=== PATIENT | female | born 1945 | race Caucasian/White ===

== ENCOUNTER 2024-12-14 10:09 | Outpatient (AMB) | payer OTHER, SELFPAY ==
--- NOTE | 2024-12-14 10:15 | MHC.OFFVIS ---
Intake Visit Reasons: 3m SZ Accompanied by: Daughter Allergies No Known Allergies Allergy (Verified 12/14/24 10:37) Medication List - Last Reconciled 12/14/24 by rTi Andersen CNP amlodipine 10 mg PO DAILY apixaban (Eliquis) 2.5 mg PO BID atorvastatin (Lipitor) 10 mg PO DAILY labetalol 200 mg PO BID levetiracetam 1,000 mg PO Q12H losartan 25 mg PO DAILY HPI Comments Details: 79-year-old woman with obesity, HTN, left basal ganglia area hemorrhage in 1992 and subsequent seizure disorder (chewing movements and zoning out for about a minutes). Seizures were controlled on the meds she was taking. She has no h/o generalized seizures or admission in hospital with seizures or intubation. She had small seizures where she would make chewing movements with her mouth and zone out for about a minute or so on 04/18/2024, 05/14/2024, 06/17/2024, 08/05/2024, and 08/31/2024. She was taking increased dose of levetiracetam 1000mg twice a day and had few more small seizures which were similar to previous episodes on 09/13/2024, 09/29/2024, 10/12/2024, and 11/23/2024. No missed doses of medication. Her daughter had been giving her left over Dilantin when she thought seizure may be coming to try and stop it, but ran out medication. [facility] Medical History (Updated 12/14/24 @ 10:27 by Tri Andersen CNP) History of stroke HLD (hyperlipidemia) HTN (hypertension) Review of Systems Const Denies chills, Denies daytime sleepiness, Denies difficulty sleeping, Denies fatigue, Denies fever(s), Denies frequent falls, Denies headache(s), Denies increased appetite, Denies poor appetite, Denies snoring, Denies weakness, Denies weight gain and Denies weight loss Eyes Denies loss of vision ENT Denies vertigo, Denies dizziness and Denies headache(s) Card Denies chest pain at rest, Denies chest pain with activity, Denies syncope, Denies leg edema and Denies palpitations Resp Denies snoring GI Denies constipation, Denies heartburn, Denies diarrhea and Denies nausea Denies urinary frequency, Denies urinary incontinence and Denies urinary urgency Musc Denies abnormal gait, Denies numbness and Denies tingling Skin/Breast Denies dry skin and Denies rash Neuro Denies abnormal gait, Denies vertigo, Denies dizziness, Denies syncope, Denies frequent falls, Denies headache(s), Denies lack of coordination, Denies loss of vision, Denies memory loss, Denies numbness, Denies restless legs, Denies seizure-like activity, Denies tingling, Denies paresthesias, Denies tremor(s) and Denies weakness Psych Denies anxiety, Denies depression, Denies auditory hallucinations, Denies memory loss, Denies visual hallucinations and Denies suicidal ideation Endo Denies fatigue and Denies palpitations Physical Exam Const Other: General Appearance:? normal, in no acute distress. Skin:? no rashes, no significant birthmarks. Heart:? S1, S2 normal, no murmurs. Lungs:? clear anteriorly and posteriorly. Extremities:? no edema. Psych:? alert, oriented, cognitive function intact, cooperative with exam. Neuro Other: Mental Status:?She is alert and awake with normal spontaneity of speech fluency comprehension and affect.? She is able to name and repeat. Cranial Nerves:?Pupils are equal, round and reactive to light. External occular muscles are intact. Visual rodríguez are full. Face is symmetrical. Facial sensations are normal. Tongue is midline. Palate elevates symmetrically. Shoulder shrugging is normal. Hearing to bedside conversation is normal. Motor Examination:?R hemiparesis Sensory Exam:?....? Coordination:?No ataxia,?no titubation.? Gait Exam: In wheelchair. Cerebellar Signs:?[id number] with left hand is okay. Extrapyramidal System:?No tremor, rigidity with normal facial expressions.? Pronator Drift:?Not present.? Involuntary Movements:?No tremors seen.? Speech:?Normal.? Results Reviewed Results Reviewed: CT brain WO at [facility] in August 2023: Left basal ganglia area encephalomalacia Routine EEG at off in Feb 2024: Slow Assessment & Plan Assessment & Plan (1) Seizure disorder: Code(s): G40.909 - Epilepsy, unspecified, not intractable, without status epilepticus Category: Medical Plan: Increase levetiracetam 1000mg 1.5 tablet twice a day. (2) History of intracranial hemorrhage: Code(s): Z86.79 - Personal history of other diseases of the circulatory system Category: Medical Plan . Medications: New levetiracetam 1,500 mg (1.5 x 1,000 mg) PO BID 90 tabs 2RF 30 days Coding Level of Care Code Est Pt Level 4 (41889) Diagnoses Seizure disorder G40.909 History of intracranial hemorrhage Z86.79
== END 2024-12-14 10:43 | disposition home or self-care (01) ==
LOC: HO.HSM 10:10
PROVIDERS: PCP Internal Medicine Rheumatology; Referring Provider Internal Medicine Rheumatology; Visit Provider Registered Nurse
DX: G40.909 Epilepsy, unspecified, not intractable, without status epilepticus (principal); Z86.79 Personal history of other diseases of the circulatory system
CPT/HCPCS: 99214

== ENCOUNTER → 2024-12-14 10:09 | Outpatient (BNVA) | payer OTHER, SELFPAY | PROVIDERS: PCP Internal Medicine Rheumatology; Referring Provider Internal Medicine Rheumatology; Visit Provider Registered Nurse | DX: G40.909 Epilepsy, unspecified, not intractable, without status epilepticus (principal); Z86.79 Personal history of other diseases of the circulatory system; E66.9 Obesity, unspecified; I10 Essential (primary) hypertension | CPT/HCPCS: 99212 ==

== ENCOUNTER 2025-03-08 10:35 | Outpatient (AMB) | payer OTHER, SELFPAY ==
--- NOTE | 2025-03-08 10:40 | A.OFFVIS_ITS ---
Intake Visit Reasons: 2m sz Allergies No Known Allergies Allergy (Verified 03/08/25 10:41) Medication List - Last Reconciled 03/08/25 by Tri Andersen CNP amlodipine 10 mg PO DAILY apixaban (Eliquis) 2.5 mg PO BID atorvastatin (Lipitor) 10 mg PO DAILY labetalol 200 mg PO BID levetiracetam 1,500 mg (1.5 x 1,000 mg) PO BID 30 days losartan 25 mg PO DAILY HPI Comments Details: 79-year-old woman with obesity, HTN, left basal ganglia area hemorrhage in 1992 and subsequent seizure disorder (chewing movements and zoning out for about a minutes). Seizures were controlled on the meds she was taking. She has no h/o generalized seizures or admission in hospital with seizures or intubation. She had small seizures where she would make chewing movements with her mouth and zone out for about a minute or so on 04/18/2024, 05/14/2024, 06/17/2024, 08/05/2024, and 08/31/2024. Dose of levetiracetam was increased to 1000mg twice a day and had few more small seizures which were similar to previous episodes on 09/13/2024, 09/29/2024, 10/12/2024, and 11/23/2024. Her daughter had been giving her left over Dilantin when she thought seizure may be coming to try and stop it, but ran out medication. She was doing okay with increased dose of levetiracetam. She was taking leveti racetam 1500mg twice a day. No medication side effects. No seizures. Sleep was okay. [facility] Medical History (Updated 12/14/24 @ 10:27 by Tri Andersen CNP) History of stroke HLD (hyperlipidemia) HTN (hypertension) Review of Systems Const Denies chills, Denies daytime sleepiness, Denies difficulty sleeping, Denies fatigue, Denies fever(s), Denies frequent falls, Denies headache(s), Denies increased appetite, Denies poor appetite, Denies snoring, Denies weakness, Denies weight gain and Denies weight loss Eyes Denies loss of vision ENT Denies vertigo, Denies dizziness and Denies headache(s) Card Denies chest pain at rest, Denies chest pain with activity, Denies syncope, Denies leg edema and Denies palpitations Resp Denies snoring GI Denies constipation, Denies heartburn, Denies diarrhea and Denies nausea Denies urinary frequency, Denies urinary incontinence and Denies urinary urgency Musc Denies abnormal gait, Denies numbness and Denies tingling Skin/Breast Denies dry skin and Denies rash Neuro Denies abnormal gait, Denies vertigo, Denies dizziness, Denies syncope, Denies frequent falls, Denies headache(s), Denies lack of coordination, Denies loss of vision, Denies memory loss, Denies numbness, Denies restless legs, Denies seizure-like activity, Denies tingling, Denies paresthesias, Denies tremor(s) and Denies weakness Psych Denies anxiety, Denies depression, Denies auditory hallucinations, Denies memory loss, Denies visual hallucinations and Denies suicidal ideation Endo Denies fatigue and Denies palpitations Physical Exam Const Other: General Appearance:? normal, in no acute distress. Skin:? no rashes, no significant birthmarks. Heart:? S1, S2 normal, no murmurs. Lungs:? clear anteriorly and posteriorly. Extremities:? no edema. Psych:? alert, oriented, cognitive function intact, cooperative with exam. Neuro Other: Mental Status:?She is alert and awake with normal spontaneity of speech fluency comprehension and affect.? She is able to name and repeat. Cranial Nerves:?Pupils are equal, round and reactive to light. External occular muscles are intact. Visual rodríguez are full. Face is symmetrical. Facial sensations are normal. Tongue is midline. Palate elevates symmetrically. Shoulder shrugging is normal. Hearing to bedside conversation is normal. Motor Examination:?R hemiparesis Sensory Exam:?....? Coordination:?No ataxia,?no titubation.? Gait Exam: In wheelchair. Cerebellar Signs:?[id number] with left hand is okay. Extrapyramidal System:?No tremor, rigidity with normal facial expressions.? Pronator Drift:?Not present.? Involuntary Movements:?No tremors seen.? Speech:?Normal.? Results Reviewed Results Reviewed: CT brain WO at [facility] in August 2023: Left basal ganglia area encephalomalacia Routine EEG at [facility] in Feb 2024: Slow Assessment & Plan Assessment & Plan (1) Seizure disorder: Code(s): G40.909 - Epilepsy, unspecified, not intractable, without status epilepticus Category: Medical Plan: Continue levetiracetam 1000mg 1.5 tablet twice a day. Follow up in 6 months or sooner as needed. (2) History of intracranial hemorrhage: Code(s): Z86.79 - Personal history of other diseases of the circulatory system Category: Medical Plan . Medications: Refilled levetiracetam 1,500 mg (1.5 x 1,000 mg) PO BID 90 tabs 5RF 30 days Coding Level of Care Code Est Pt Level 4 (41072) Diagnoses Seizure disorder G40.909 History of intracranial hemorrhage Z86.79
== END 2025-03-08 10:48 | disposition home or self-care (01) ==
LOC: HO.HSM 10:35
PROVIDERS: PCP Internal Medicine Rheumatology; Visit Provider Registered Nurse
DX: G40.909 Epilepsy, unspecified, not intractable, without status epilepticus (principal); Z86.79 Personal history of other diseases of the circulatory system
CPT/HCPCS: 99214

== ENCOUNTER → 2025-03-08 10:35 | Outpatient (BNVA) | payer OTHER, SELFPAY | PROVIDERS: PCP Internal Medicine Rheumatology; Visit Provider Registered Nurse | DX: G40.909 Epilepsy, unspecified, not intractable, without status epilepticus (principal); Z86.79 Personal history of other diseases of the circulatory system; Z79.899 Other long term (current) drug therapy | CPT/HCPCS: 99212 ==